=== PATIENT | male | born 1960 | race Two or more races ===

== ENCOUNTER 2017-09-06 11:56 | Outpatient (CLI) | payer BC | END 2017-09-06 23:59 | disposition home or self-care (01) | LOC: WOU 11:56 | PROVIDERS: ATTEND Podiatrist Foot & Ankle Surgery | DX: L60.0 Ingrowing nail (principal); E11.41 Type 2 diabetes mellitus with diabetic mononeuropathy; Z89.431 Acquired absence of right foot; Z79.4 Long term (current) use of insulin | CPT/HCPCS: 11730; A6402 ==

== ENCOUNTER 2017-11-19 10:13 | Outpatient (CLI) | payer BC | END 2017-11-19 23:59 | disposition home or self-care (01) | LOC: WOU 10:13 | PROVIDERS: ATTEND Podiatrist Foot & Ankle Surgery | DX: E11.621 Type 2 diabetes mellitus with foot ulcer (principal); L97.521 Non-pressure chronic ulcer of other part of left foot limited to breakdown of skin; Z89.431 Acquired absence of right foot | CPT/HCPCS: 11042; A6402 ==